=== PATIENT | female | born 2005 | race African-American/Black ===

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

== ENCOUNTER 2024-02-20 23:21 | Emergency (ER) | payer SELFPAY ==
[2024-02-21] MEDS ORDERED: Dexamethasone 10 MG/ML VIAL ONE (01:09)
[2024-02-21] MEDS ORDERED: Ketorolac Tromethamine 30 MG (1 mL) VIAL ONE (01:09)
== END 2024-02-21 01:20 | disposition home or self-care (01) ==
LOC: ERS 23:21
DX: J02.9 Acute pharyngitis, unspecified (principal); E11.9 Type 2 diabetes mellitus without complications
CPT/HCPCS: 87081; 87430; 96372; 99282; J1100; J1885